=== PATIENT | female | born 1990 | race Caucasian/White ===

== ENCOUNTER 2024-04-22 16:55 | Emergency (ER) | payer SELFPAY ==
[~2024-04-22] VITALS: Ht 167.6 cm; Wt 127.0 kg
[2024-04-22 17:12] VITALS: BP 123/65; PULSE 73; RESP 16; TEMP 98; O2SAT 99
== END 2024-04-22 20:37 | disposition home or self-care (01) ==
LOC: ER 16:55
DX: S00.83XA Contusion of other part of head, initial encounter (principal); Y08.89XA Assault by other specified means, initial encounter; Y93.89 Activity, other specified; Y92.89 Other specified places as the place of occurrence of the external cause; Y99.8 Other external cause status
CPT/HCPCS: 99281